=== PATIENT | male | born 1995 ===

== ENCOUNTER 2024-03-12 11:50 | Outpatient (CLI) | payer OTHER, SELFPAY | END 2024-03-12 11:51 | disposition home or self-care (01) | PROVIDERS: Visit Provider Obstetrics & Gynecology | DX: R79.89 Other specified abnormal findings of blood chemistry (principal); Z31.69 Encounter for other general counseling and advice on procreation; Z13.71 Encounter for nonprocreative screening for genetic disease carrier status | CPT/HCPCS: 84146; 86703; 86762; 86787; 86803 ==

== ENCOUNTER 2024-10-09 15:34 | Outpatient (CLI) | payer OTHER, SELFPAY ==
--- NOTE | 2024-10-09 15:45 | CRLHL7_ITS ---
For Patients: As a result of the Century Cures Act, medical imaging exams and procedure reports are released immediately into your electronic medical record. You may view this report before your referring provider. If you have questions, please contact your health care provider. OBSTETRICAL ULTRASOUND TRANSVAGINAL, 10/09/2024 CLINICAL INDICATION: Dating and viability. LMP: 08/03/2024 KIM by LMP: 05/10/2025 Gestational age: 9 weeks 4 days Previous ultrasound: No TECHNIQUE: Real-time weiss-scale imaging of the fetus was performed transvaginal. Transvaginal imaging was performed for better visualization of the endometrium and ovaries. FINDINGS: CRL: 2.3 cm, 9 weeks 0 days; KIM 05/14/2025 heart rate: 186 BPM Gestational sac: 3.0 cm, appears within normal limits Yolk sac: 3.5 mm, appears within normal limits Right ovary: 2.9 x 1.7 x 2.2 cm, CL Left ovary: 2.7 x 1.3 x 1.7 cm IMPRESSION: 1. Single living intrauterine measuring 9 weeks 0 days with sonographic due date of 05/14/2025. 2. heart rate 186 beats per minute, upper limits of normal. CAMERON SMILEY M.D. Diagnostic Radiologist [email or web address] Transcribed: 10:[address]/Dictated by: Cameron Smiley MD @ 10/10/2024 6:52:00 AM (Electronically Signed)
== END 2024-10-09 15:35 | disposition home or self-care (01) ==
LOC: US 15:35
PROVIDERS: Visit Provider Advanced Practice Midwife
DX: Z34.91 Encounter for supervision of normal pregnancy, unspecified, first trimester (principal); Z3A.09 9 weeks gestation of pregnancy
CPT/HCPCS: 76817; 83021; 86703; 86706; 86803; 86850; 86900; 86901; 87086; 87340; 87491; 87591

== ENCOUNTER 2024-10-09 16:41 | Outpatient (CLI) | payer OTHER, SELFPAY ==
[2024-10-09 21:19] LABS: Chlamydia DNA Amplified* NOT DETECTED (No Detected); GC DNA Amplified* NOT DETECTED (No Detected)
== END 2024-10-09 16:42 | disposition home or self-care (01) ==
PROVIDERS: Visit Provider Advanced Practice Midwife
DX: Z34.01 Encounter for supervision of normal first pregnancy, first trimester (principal)
CPT/HCPCS: 80306; 83020; 83021; 85660; 86592; 86703; 86704; 86706; 86762; 86787; 86803; 86850; 86900; 86901; 87086; 87340; 87491; 87591

== ENCOUNTER 2024-11-25 09:21 | Emergency (ER) | payer OTHER, SELFPAY ==
--- OUTSIDE RECORDS SUMMARY | 2024-11-25 09:24 | XMS_ITS | Clinical Summary ---
Author Organization [email or web address] Address [address] [place] [id number] Care Team Providers Care Edger Automatic Name Role Phone Pcp, No Primary Care Provider Unavailabl e Allergies No known active allergies Medications lamoTRIgine (LAMICTAL) 100 mg tablet Take 1 tablet by mouth once daily. 0 03/01/2013 Active gabapentin (NEURONTIN) 600 mg tablet Take 1 tablet by mouth 2 times daily. 0 03/01/2013 Active buPROPion (BUPROBAN) 150 mg Sustained-Releas e tablet Take 1 tablet by mouth every morning. 0 03/01/2013 Active norethindrone-et h estradiol, 1-35 mg-mcg, (DASETTA , ,) 1-35 mg-mcg tablet Take 1 tablet by mouth once daily. 1 Package 0 03/01/2013 Active sertraline (ZOLOFT) 50 mg tablet Take 1 tablet by mouth once daily. 30 tablet 1 03/01/2013 Active Active Problems Problem Noted Date Diagnosed Date Encounter for procreative genetic counseling Overview (03/15/2024): SRO GC - Completed [x] Patient name: Amber Bejarano : 1995 Age: 29 y.o. Date of SRO: 03/15/2024 Estimated Date of Delivery: None Gest Age: NA G/P: Current BMI: REFERRING PROVIDER/CLINIC LOCATION/FAX #: Cintia Kearney MD Primary MD approves scheduling of recommended ultrasounds/testing: Not specified Reason for referral: Preconception carrier screening Please schedule the following: [] Sapp [] Multiples: [] Consult [] Ultrasound: - N/A [] Lab: [x] Genetic Counseling [] Before [] After []15 [] 30 [x]45 []NT [][facility] []Amnio [] BMI > 40 [] Data Typist - Language [] [place] Insurance: Location Specialty Days Virtual Visit [] In-person [] Virtual [x] Either N/A Comments: RN: Resident Services Coordinator: GC: Adelita Chung MS, KATERIN MD/Provider: Date:03/15/2024 Urgency: 2-8 weeks [x]Can be sooner [] Can be split Major depression, recurrent Generalized anxiety disorder Low back pain Immunizations Immunization Administration Dates Next Due DTaP 07/10/1999, 7,1995,1995, Hepatitis B (Peds) 1995,1995, 995 Hib Conjugate, Unspecified 06/15/1996,1995 ,1995,1995 Human Papilloma Virus Vaccine 03/14/2012, 012,08/31/2011 Inactivated Polio Vaccine 07/10/1999,1995, 1995,1995 MMR 07/10/1999,06/15/1996 Td (Age >=7 Years) 11/06/2008 Tdap 11/06/2008 Varicella Vaccine 11/06/2008,07/10/1999 Social History Tobacco Use Types Packs/Day Years Used Date Smoking Tobacco: Never Smokeless Tobacco: Never Alcohol Use Standard Drinks/Week Comments Yes 0 (1 standard drink = 0.6 oz pur e alcohol) Comments No Sex and Gender Information Value Date Recorded Sex Assigned at Not on file Legal Sex Female 6:29 PM CDT Gender Identity Not on file Sexual Orientation Not on file Obstetrics History Last Filed Vital Signs Vital Sign Reading Time Taken Comments Blood Pressure 125/85 01/03/2014 6:23 AM CDT Pulse 90 01/03/2014 6:23 AM CDT Temperature 36.7 C (98.1 F) 01/03/2014 6:23 AM CDT Respiratory Rate 16 01/03/2014 6:23 AM CDT Oxygen Saturation 99% 01/03/2014 6:23 AM CDT Inhaled Oxygen Concentration - - Weight 66.7 kg (147 lb) 01/03/2014 6:23 AM CDT Height 167.6 cm (5' 5.98) 01/03/2014 6:23 AM CD T Body Mass Index 23.74 01/03/2014 6:23 AM CDT Plan of Treatment Health Maintenance Due Date Last Done Comments Depression screening for age 12+ 2007 HIV for age 15-65 2010 BMI (ht and wt on same day) for age 18+ 2013 Hepatitis C screening for ag e 18-79 2013 Pap test for age 21-65 01/20/2016 Tetanus booster 11/06/2018 11/06/2008, 11/06/2008 COVID-19 vaccine series (2023- season) 2024 Influenza Vaccine (#1) 2024 Hepatitis B series for 19+ Completed 08/08, 1995, 1995 Pneumococcal series for age 6-49 Aged Out No longer eligible b ased on patient's age to complete this topic Care Teams Edger Automatic Relationship Specialty Start Date End Date Pcp, No . PCP - General 02/23/13
--- OUTSIDE RECORDS SUMMARY | 2024-11-25 09:24 | XMS_ITS | Encounter Summary ---
Author Organization [facility] Address [address] [place] [address]. [place] [address] Care Team Providers Care Welt Sole Layer Name Role Phone Santa Whelan PA-C Primary Care Provider [facility] Primary Care Provider Santa Wiley CNP Primary Care Provider Santa Whelan-C Unavailable Santa Whelan PA-C Unavailable [phone] Santa Whelan PA-C Unavailable Aranza Gates APRN REGIONAL GUIDE Unavailable Santa Wiley REGIONAL GUIDE Unavailable [phone] Aranza Gates APRN REGIONAL GUIDE Unavailable Terrie Cox-C Unavailable [phone] Reason for Visit * Reason Comments Medication Refill ISIBLOOM 0.15-30 MG- MCG per tablet Encounter Details Date Type Department Care Team (Late st Contact Info) Description 01/12/[address] [address] Santa Whelan PA-C [address] [facility] [place] [address] Medication Refill (ISIBLOOM 0.15-30 MG-MCG per tablet) Social History Tobacco Use Types Packs/Day Years Used Date Smoking Tobacco: Never Smokeless Tobacco: Never Alcohol Use Standard Drinks/Week Comments Yes 0 (1 standard drink = 0.6 oz pur e alcohol) Comments No Sex and Gender Information Value Date Recorded Sex Assigned at Not on file Legal Sex Female 12:35 PM CDT Gender Identity Not on file Sexual Orientation Not on file Occupation Industry Job Start Date Job End Date Not on file Not on file Not on file Not on file documented as of this encounter Miscellaneous Notes * Telephone Encounter - Marie Preciado - 01/13/2018 3:21 PM CDT Informed pt of refill she stated she doesn't know when she will be able to schedule future appt. PRIYA Hickey * Telephone Encounter - Santa Whelan PA-C - 01/13/2018 7:24 AM CDT 1 more fill. Must have appointment. Santa Whelan PA-C * Telephone Encounter - Dasha Israel RN - 01/12/2018 3:24 PM CDT Routing refill request to provider for review/approval because: Federica given x1 and patient did not follow up, please advise Last Refill 12/14/17: December 29, 2017 Pennie Gordon ?? 2:09 PM Note Informed patient below and she stated she was out of town and would call back prior to her next refill to schedule appointment. PRIYA Burks * Telephone Encounter - Christelle Urias - 01/12/2018 7:56 AM CDT Requested Prescriptions Pending Prescriptions Disp Refills ??? ISIBLOOM 0.15-30 MG-MCG per tablet [Pharmacy Med Name: ISIBLOOM 0.15MG- 0.03MG TABLETS 28S] 28 tablet 0 Last Written Prescription Date: 12-16-17 Last Fill Quantity: 28, # refills: 0 Last office visit: 08/02/2017 with prescribing provider: 08-02-17 Future Office Visit: Sig: TAKE 1 TABLET BY MOUTH EVERY DAY Contraceptives Protocol Passed 01/12/2018 4:02 AM Passed - Patient is not a current smoker if age is 35 or older Passed - Recent (12 mo) or future (30 days) visit within the authorizing provider's specialty Patient had office visit in the last 12 months or has a visit in the next 30 days with authorizing provider or within the authorizing provider's specialty. See Patient Info tab in inbasket, or Choose Columns in Meds & Orders section of the refill encounter. 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 Assessment Noted Time PHQ-9 Depression Total Score: 11 018 7:40 AM CDT documented as of this encounter Care Teams Welt Sole Layer Relationship Specialty Start Date End Date Santa Whelan PA-C PCP - General Physician Filling Mixer - Medical 08/02/17 06/15/[address] [address] PCP - General 06/16/23 05/24/24 Santa Wiley, REGIONAL GUIDE [address] [place], [place] [address] PCP - General Nurse Practitioner - Family 05/25/24 Santa Whelan PA-C [address] [place] [address] PCP - Assigned PCP 12/19/16 07/04/18 Santa Whelan PA-C Physician Filling Mixer - Medical 06/16/23 09/17/24 Santa Whelan PA-C [address] [place] [address] Assigned PCP 12/19/16 08/02/20 Aranza Gates APRN REGIONAL GUIDE [address] [place], [place] [id number] Assigned Neuroscience Provider 06/24/24 Santa Wiley, REGIONAL GUIDE [address] [place] [address] [id number] Assigned PCP 07/23/23 Aranza Gates APRN REGIONAL GUIDE [address] [place] [address] Assigned Neuroscience Provider 07/15/23 06/23/24 Terrie Cox PA-C [address] [place] [address] Assigned Surgical Provider 08/22/24 documented as of this encounter
--- OUTSIDE RECORDS SUMMARY | 2024-11-25 09:24 | XMS_ITS | Encounter Summary ---
Author Organization [facility] Address [address] [place] [address]. [place] [address] Care Team Providers Care Fleet Service Manager Name Role Phone Santa Wiley CNP Primary Care Provider [phone] Santa Whelan PA-C Unavailable Aranza Gates APRN CMA Unavailable Santa Wiley CNP Unavailable [phone] Terrie CoxC Unavailable Encounter Details Date Type Department Care Team (Late st Contact Info) Description 07/19/2024 [facility] [address] [place] [address] [facility] Social History Tobacco Use Types Packs/Day Years Used Date Smoking Tobacco: Never Smokeless Tobacco: Never Alcohol Use Standard Drinks/Week Comments Yes 3 (1 standard drink = 0.6 oz pur e alcohol) Social Connection and Isolation Panel [NHANES] A nswer Date Recorded Frequency of Communication with Friends and Fami ly Not on file 01/26/2024 How often do you get togethe r with friends or relatives? Patient declined 01/26/2024 Attends Cheondoism Services Not on file 01/25 Active Member of Clubs or Organizations Not on f ile 01/26/2024 Attends Club or Organization Meetings Not on louis e 01/26/2024 Marital Status Not on file 01/26/2024 PHQ-2 Answer Date Recorded PHQ-2 Score 1 07/19/2024 [facility] Occupational Stress Questionnaire Answer Date Recorded Do you feel stress - tense, restless, nervous, or anxious, or unable to sleep at night because your mind is troubled all the time - these days? To some extent 01/26/2024 Exercise Vital Sign Answer Date Recorde d On average, how many days pe r week do you engage in moderate to strenuous exercise (like a brisk walk)? 5 days 01/26/2024 On average, how many minutes do you engage in exercise at this level? 150+ min 01/26/2024 Adolescent Education Answer Date Record ed Getting School Help Needed Not on file 07/09 Food Insecurity Answer Date Recorded Within the past 12 months, d id you worry that your food would run out before you got money to buy more? No 01/26/2024 Within the past 12 months, d id the food you bought just not last and you didn t have money to get more? No 01/26/2024 Housing Stability Answer Date Recorded Do you have housing? (Diana g is defined as stable permanent housing and does not include staying outside in a car, in a tent, in an abandoned building, in an overnight fpc, or couch-surfing.) Yes 01/26/2024 Are you worried about losing your housing? No 01/26/2024 Financial Resource Strain Answer Date R ecorded Within the past 12 months, h ave you or your family members you live with been unable to get utilities (heat, electricity) when it was really needed? No 01/26/2024 Transportation Needs Answer Date Record ed Within the past 12 months, h as lack of transportation kept you from medical appointments, getting your medicines, non-medical meetings or appointments, work, or from getting things that you need? No 01/26/2024 Interpersonal Safety Answer Date Record ed Do you feel physically and e motionally safe where you currently live? Yes 01/27/2024 Within the past 12 months, h ave you been hit, slapped, kicked or otherwise physically hurt by someone? No 01/27/2024 Within the past 12 months, h ave you been humiliated or emotionally abused in other ways by your partner or ex-partner? No 01/27/2024 Comments No Sex and Gender Information Value Date Recorded Sex Assigned at Not on file Legal Sex Female 12:35 PM CDT Gender Identity Not on file Sexual Orientation Not on file Occupation Industry Job Start Date Job End Date Not on file Not on file Not on file Not on file documented as of this encounter Plan of Treatment Not on file documented as of this encounter Visit Diagnoses Not on filedocumented in this encounter Additional Health Concerns Assessment Noted Time PHQ-9 Depression Total Score: 1 03/19/20 24 3:24 PM EXCEPTIONAL STUDENT EDUCATION TEACHER documented as of this encounter Care Teams Fleet Service Manager Relationship Specialty Start Date End Date Santa Wiley CNP [address] [place] [id number] PCP - General Nurse Practitioner - Family 05/25/24 Santa Whelan PA-C [address] [place] [address] [id number] Physician Physician General Internal Medicine - Medical 06/16/23 09/17/24 Aranza Gates APRN CNP [address] [place] [address] [id number] Assigned Neuroscience Provider 06/24/24 Santa Wiley CNP [address] [place] [address] [id number] Assigned PCP 07/23/23 Terrie Cox PA-C [address] [place] [address] [id number] Assigned Surgical Provider 08/22/24 documented as of this encounter
--- OUTSIDE RECORDS SUMMARY | 2024-11-25 09:24 | XMS_ITS | Encounter Summary ---
Author Organization [facility] Address [address] [place] [address]. [place] [address] Care Team Providers Care Acquisitions Analyst Name Role Phone Clinic - [facility] Primary Care Provider Santa Wiley ACTUARIAL CONSULTANT Primary Care Provider [phone] Santa Whelan PA-C Unavailable [phone] Aranza Gates APRN ACTUARIAL CONSULTANT Unavailable Santa Wiley ACTUARIAL CONSULTANT Unavailable Aranza Gates APRN ACTUARIAL CONSULTANT Unavailable Terrie Cox PA-C Unavailable [phone] Reason for Visit * Reason Onset Date Comments MyChart Communication 07/29/2023 Encounter Details Date Type Department Care Team (Late st Contact Info) Description 07/29/2023 My[facility] Medical Advice [address] [address] Santa Wiley CNP [address] [place] [address] MyChart Communication Social History Tobacco Use Types Packs/Day Years Used Date Smoking Tobacco: Never Smokeless Tobacco: Never Alcohol Use Standard Drinks/Week Comments Yes 3 (1 standard drink = 0.6 oz pur e alcohol) PHQ-2 Answer Date Recorded PHQ-2 Score 0 05/10/2018 Adolescent Education Answer Date Record ed Getting School Help Needed Not on file 07/09 Comments No Sex and Gender Information Value Date Recorded Sex Assigned at Not on file Legal Sex Female 12:35 PM CDT Gender Identity Not on file Sexual Orientation Not on file documented as of this encounter Miscellaneous Notes * Telephone Encounter - Radha Ordaz RN - 08/01/2023 7:29 AM CDT Please see my chart message below Please review and advise Thank you Radha Ordaz RN, BSN [place] Triage documented in this encounter Plan of Treatment Not on file documented as of this encounter Visit Diagnoses Not on filedocumented in this encounter Additional Health Concerns Infection Onset Date Last Indicated Resolved Time Rule Out C-difficile 05/26/2024 05/28/2024 025 5:58 PM 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 Assessment Noted Time PHQ-9 Depression Total Score: 10 024 6:00 PM CDT documented as of this encounter Care Teams Acquisitions Analyst Relationship Specialty Start Date End Date Clinic - [address] [address] PCP - General 06/16/23 05/24/24 Santa Wiley CNP [address] [place] [address] [id number] PCP - General Nurse Practitioner - Family 05/25/24 Santa Whelan, PAShereeC [address] [place] [address] Physician Stenciling Machine Tender - Medical 06/16/23 09/17/24 Aranza Gates APRN ACTUARIAL CONSULTANT [address] [place] [address] Assigned Neuroscience Provider 06/24/24 Santa Wiley, LEEANNA [address] [place] [address] [id number] Assigned PCP 07/23/23 Aranza Gates APRN ACTUARIAL CONSULTANT [address] [place] [address] Assigned Neuroscience Provider 07/15/23 06/23/24 Terrie Cox PA-C [address] [place], [place] [address] Assigned Surgical Provider 08/22/24 documented as of this encounter
--- OUTSIDE RECORDS SUMMARY | 2024-11-25 09:24 | XMS_ITS ---
Author Organization [facility] Source Produ ction (ClinicalSummary Clone) Address Unknown Care Team Providers Care Spray Gun Repairer Name Role Phone Unavailable Primary Care Physician Unavailab le Results * [UNITY] CARRIER SCREEN Performed by: [employer] Component Value Range Date Sickle Cell Disease/Beta-Thalassemia/Hemo globinopathies carrier screen NEGATIVE 10/27/2024 07:56 am [facility] Alpha-Thalassemia carrier screen NEGATIVE 10/27/2024 07:56 am [place] Cystic Fibrosis carrier screen NEGATIVE 10/27/2024 07:56 am [facility] Spinal Muscular Atrophy carrier screen NEGATIVE 2 SMN1 copies, SNP not present 10/27/2024 07:56 am [place] For detailed report, see PDF See PDF 10/27/2024 07:56 am [place] 10/27/2024 07:5 6 am [facility] Social History Observation Value Start Date End Date
--- OUTSIDE RECORDS SUMMARY | 2024-11-25 09:24 | XMS_ITS | Clinical Summary ---
Author Organization [facility] Address [address] [place] [id number] Care Team Providers Care Telecommunications Field Technician Name Role Phone Santa Wiley PAYROLL AND BENEFITS ASSISTANT Primary Care Provider [phone] Aranza Gates APRN PAYROLL AND BENEFITS ASSISTANT Unavailable Santa Wiley [facility] Unavailable [phone] Terrie Cox PA-C Unavailable [phone] Allergies No known active allergies Medications desogestrel-ethin yl estradiol (ISIBLOOM) 0.15-30 MG-MCG per tabletIndications :Encounter for initial prescription of contraceptive pills Take 1 tablet by mouth daily Must have appointment for further refills. 28 tablet 8 Active medical cannabis (Patient's own supply) See Admin Instructions. (The purpose of this order is to document that the patient reports taking medical cannabis. This is not a prescription, and is not used to certify that the patient has a qualifying medical condition.) Active calcium citrate-vitamin D (CITRACAL) 315-5 MG-MCG TABS per tablet Take 1 tablet by mouth 2 times daily Active propranolol (INDERAL) 10 MG tabletIndications :SHARON (generalized anxiety disorder) Take 1 tablet (10 mg) by mouth 3 times daily as needed (anxiety) 90 tablet 4 Active diazepam (VALIUM) 2 MG tabletIndications :SHARON (generalized anxiety disorder) Take 1 tablet (2 mg) by mouth every 6 hours as needed for anxiety 30 tablet 4 Active lidocaine-priloca ine (EMLA) 2.5-2.5 % external creamIndications: SHARON (generalized anxiety disorder) Apply topically daily as needed for moderate pain 30 g 4 Active triamcinolone (KENALOG) 0.025 % external ointmentIndicatio ns:Dermatitis Apply topically 2 times daily. 80 g 1 4 Active venlafaxine (EFFEXOR XR) 37.5 MG 24 hr capsuleIndication s:SHARON (generalized anxiety disorder) Take 1 capsule (37.5 mg) by mouth daily. Then discontinue. 14 capsule 4 Active Active Problems Problem Noted Date Diagnosed Date Hair loss 07/04/2014 CARDIOVASCULAR SCREENING; LDL GOAL LESS THAN 160 01/04/2014 Chronic back pain 01/04/2014 Immunizations Immunization Administration Dates Next Due DTAP (<7y) 07/10/1999, 7,1995,1995, 5 HIB (PRP-T) 06/15/1996,1995,1995 ,1995 HPV 03/14/2012,11/09/2011,08/31/2011 HepB 1995,1995,1995 MMR (MMRII) 07/10/1999,06/15/1996 OPV, trivalent, live 07/10/1999,1995,06/10,1995 TDAP (Adacel,Boostrix) 11/06/2008 Varicella (Varivax) 11/06/2008,07/10/1999 Family History Medical History Relation Comments Alcohol/Drug Brother Anxiety Disorder Father Alzheimer Disease Maternal Grandfather Alzheimer Disease Maternal Grandmother Diabetes Maternal Grandmother Hypertension Maternal Grandmother Thyroid Disease Mother Alzheimer Disease Paternal Grandfather Anxiety Disorder Paternal Grandfather Cancer Paternal Grandmother ? Relation Status Comments Brother Father Alive Maternal Grandfather Maternal Grandmother Alive Mother Alive Paternal Grandfather Paternal Grandmother Social History Tobacco Use Types Packs/Day Years [...] friends or relatives? Patient declined 01/26/2024 Attends Alevism Services Not on file 01/25 Active Member of Clubs or Organizations Not on f ile 01/26/2024 Attends Club or Organization Meetings Not on louis e 01/26/2024 Marital Status Not on file 01/26/2024 PHQ-2 Answer Date Recorded PHQ-2 Score 1 07/19/2024 [facility] - Occupational Stress Questionnaire Answer Date [...] Answer Date Recorded Do you have housing? (Housin g is defined as stable permanent housing and does not include staying outside in a car, in a tent, in an abandoned building, in an overnight care home, or couch-surfing.) Yes 01/26/2024 Are you worried [...] file Not on file Not on file Last Filed Vital Signs Vital Sign Reading Time Taken Comments Blood Pressure 127/81 07/19/2024 11:49 AM CDT Pulse 58 07/19/2024 11:49 AM CDT Temperature 37.6 C (99.7 F) 01/27/2024 1:22 PM CDT Respiratory Rate 16 01/27/2024 1:22 PM CDT Oxygen Saturation 98% 07/19/2024 11:49 AM CDT Inhaled Oxygen Concentration - - Weight 81.3 kg (179 lb 4.8 oz) 07/19/2024 11:49 AM CDT Height 165.1 cm (5' 5) 07/19/2024 11:49 AM CDT Body Mass Index 29.84 07/19/2024 11:49 AM CDT Plan of Treatment Health Maintenance Due Date Last Done Comments DTAP/TDAP/TD VACCINE (7 - Td or Tdap) 11/06/2018 11/06/2008, 11/06/2008, 07/10/1999, Additional history exists COVID-19 VACCINE ( season) 2024 ANNUAL REVIEW OF HM ORDERS 12/07/2024 12/08/2023 HEPATITIS C SCREENING 12/25/2024 Postpo farida from 2013 (Other) HIV SCREENING 12/25/2024 Postponed from 2010 (Other) INFLUENZA VACCINE (#1) 2024 YEARLY PREVENTIVE VISIT 01/26/2025 01/27/2024, 01/04 PAP 01/26/2027 01/27/2024 ADVANCE CARE PLANNING 01/26/2029 01/27/2024 ZOSTER VACCINE (1 of 2) 2045 HEPATITIS B VACCINE Completed 1995, 1995, 1995, Additional history exists HPV VACCINE Completed 03/14/2012, 10/30, 08/31/2011 CHLAMYDIA SCREENING Discontinued 01/04/2014 PHQ-2 (once per calendar year) Completed 07/19/2024, 03/19/2024, 03/19/2024, Additional history exists MENINGITIS VACCINE Aged Out No longer eligible based on patient's age to complete this topic PNEUMOCOCCAL VACCINE: PEDIATRICS (0 to 5 YEARS) AND AT-RISK PATIENTS (6 to 49 YEARS) Aged Out No longer eligible based on patient's age to complete this topic Procedures Procedure Name Priority Date/Time Associated Diagnosis Comments GYNECOLOGIC CYTOLOGY Routine 01/27/2024 1:47 PM CDT Cervical cancer screening CHLAMYDIA TRACHOMATIS PCR Routine 01/04/2014 1:00 PM CDT Routine Or Child Health Check from Last 3 Months or Most Recently Relevant to Health Maintenance Results * Pap Screen Reflex to HPV if ASCUS - Recommended Age 25 - 29 Years (01/27/2024 1:47 PM CDT) Interpretation Negative for Intraepithelial Lesion or Malignancy (NILM) 02/01/2024 8:37 AM CDT [facility] at 0837 CDT Comment Papanicolaou Test Limitations: Cervical cytology is a screening test with limited sensitivity, and regular screening is critical for cancer prevention. Pap tests are primarily effective for the diagnosis/prevent ion of squamous cell carcinoma, not adenocarcinoma or other cancers. 02/01/2024 8:37 AM CDT [facility] Specimen Adequacy Satisfactory for evaluation, endocervical/ferraro sformation zone component present 02/01/2024 8:37 AM CDT [facility] Clinical Information none 02/01/2024 8:37 AM CDT [facility] Reflex Testing Yes if ASCUS 02/01/20 8:37 AM CDT [facility] Previous Abnormal? No 02/01/2024 8:37 AM CDT [facility] Performing Labs The technical component of this testing was completed at [facility]. Stain controls for all stains resulted within this report have been reviewed and show appropriate reactivity. 02/01/2024 8:37 AM CDT [facility] Brushing ENDOCERVICAL STRUCTURE / Unknown 01/27/2024 1:47 PM CDT 01/27/2024 2:35 PM CDT us Santa SHARMA - ZOILA AP Final Res ult Performing Organization Address City/[facility]/ZIP Co de Phone Number [facility] Specialty Lab [address] [facility], Room [address] * CHLAMYDIA TRACHOMATIS PCR (01/04/2014 1:00 PM CDT) Specimen Description Urine [facility] Chlamydia Trachomatis PCR Negative Negative for C. trachomatis rRNA by parimutuel cashier mediated amplification. A negative result by parimutuel cashier mediated amplification does not preclude the presence of C. trachomatis infection because results are dependent on proper and adequate collection, absence of inhibitors, and sufficient rRNA to be detected. NEG [facility] Urine specimen (specimen) 01/04/2014 1:00 PM CDT 01/04/2014 1:28 PM CDT us Emilia Carlisle MD LAB - MICRO GENERAL ORDERABLES F inal Result Performing Organization Address [facility]/ZIP Co de Phone Number [facility] [address] [place] [address] from Last 3 Months or Most Recently Relevant to Health Maintenance Insurance [facility] [employer] [facility] [employer] [facility] Innovate/Protect Care Teams Telecommunications Field Technician Relationship Specialty Start Date End Date Santa Wiley CNP [address] [place] [address] [phone] PCP - General Nurse Practitioner - Family 05/25/24 Aranza Gates APRN PAYROLL AND BENEFITS ASSISTANT [address] [place] [address] [phone] Assigned Neuroscience Provider 06/24/24 Santa Wiley CNP [address] [place] [address] [phone] Assigned PCP 07/23/23 Terrie Cox PA-C [address] [place] [address] [phone] Assigned Surgical Provider 08/22/24
--- OUTSIDE RECORDS SUMMARY | 2024-11-25 09:24 | XMS_ITS | Encounter Summary ---
Author Organization [facility] Address [address] [place] [address]. [place] [address] Care Team Providers Care Industrial Designer Name Role Phone Clinic - [facility] Primary Care Provider Santa Wiley [facility] Primary Care Provider Santa Whelan-C Unavailable [phone] Aranza Gates APRN AIR INTELLIGENCE OFFICER Unavailable Santa Wiley AIR INTELLIGENCE OFFICER Unavailable [phone] Aranza Gates APRN AIR INTELLIGENCE OFFICER Unavailable Terrie Cox-C Unavailable [phone] Encounter Details Date Type Department Care Team (Late st Contact Info) Description 07/12/2023 [facility] [place] [facility] [address] [place] [phone] Ana Hewitt RN Social History Tobacco Use Types Packs/Day Years [...] Out C-difficile 05/26/2024 05/28/2024 025 5:58 PM CYTOLOGIST Assessment Noted Time PHQ-9 Depression Total Score: 15 024 4:53 PM CYTOLOGIST documented as of this encounter Care Teams Industrial Designer Relationship Specialty Start Date End Date [facility] - [address] [phone] PCP - General 06/16/23 05/24/24 Santa Wiley CNP [address] [place] [address] [phone] PCP - General Nurse Practitioner - Family 05/25/24 Santa Whelan PA-C [address] [place] [address] [phone] Physician Keel Press Operator - Medical 06/16/23 09/17/24 Aranza Gates APRN AIR INTELLIGENCE OFFICER [address] [place] [address] Assigned Neuroscience Provider 06/24/24 Santa Wiley CNP [address] [place] [address] [phone] Assigned PCP 07/23/23 Aranza Gates APRN AIR INTELLIGENCE OFFICER [address] [place], [place] 279355 Assigned Neuroscience Provider 07/15/23 06/23/24 Terrie Cox PA-C [address] [place] [address] Assigned Surgical Provider 08/22/24 documented as of this encounter
--- OUTSIDE RECORDS SUMMARY | 2024-11-25 09:24 | XMS_ITS | Encounter Summary ---
Author Organization [facility] Address [address] [place] [address]. [place] [address] Care Team Providers Care Board Setter Name Role Phone Santa Wiley CNP Primary Care Provider [phone] Santa Whelan PA-C Unavailable Aranza Gates APRN PSYCH SALES SPECIALIST Unavailable Santa Wiley CNP Unavailable Terrie Cox PA-C Unavailable [phone] Encounter Details Date Type Department Care Team (Late st Contact Info) Description 08/06/2024 [facility] Medical Advice [facility] [address] [phone] Terrie Cox PA-C [address] [place] [phone] Social History Tobacco Use Types Packs/Day Years [...] friends or relatives? Patient declined 01/26/2024 Attends Quaker Services Not on file 01/25 Active Member of Clubs or Organizations Not on f ile 01/26/2024 Attends Club or Organization Meetings Not on louis e 01/26/2024 Marital Status Not on file 01/26/2024 PHQ-2 Answer Date Recorded PHQ-2 Score 1 07/19/2024 [facility] - Occupational Stress Questionnaire Answer Date Recorded [...] in an abandoned building, in an overnight assisted, or couch-surfing.) Yes 01/26/2024 Are you worried [...] Total Score: 1 03/19/20 24 3:24 PM CARPET OR RUG LAYER HELPER documented as of this encounter Care Teams Board Setter Relationship Specialty Start Date End Date Santa Wiley CNP [address] [place] [address] [phone] PCP - General Nurse Practitioner - Family 05/25/24 Santa Whelan PA-C [address] [place] [address] [phone] Physician Compliance Program Manager - Medical 06/16/23 09/17/24 Aranza Gates APRN PSYCH SALES SPECIALIST [address] [place] [address] [phone] Assigned Neuroscience Provider 06/24/24 Santa Wiley CNP [address] [place] [address] [phone] Assigned PCP 07/23/23 Terrie Cox PA-C [address] [place] [address] [phone] Assigned Surgical Provider 08/22/24 documented as of this encounter
--- OUTSIDE RECORDS SUMMARY | 2024-11-25 09:24 | XMS_ITS ---
Author Organization [facility] Source [facility] ction (ClinicalSummary Clone) Address Unknown Care Team Providers Care Spinner Hydraulic Name Role Phone Unavailable Primary Care Physician Unavailab le Results * [UNITY] ANEUPLOIDY NIPT Performed by: [employer] Value Range Date Fraction 2.0% 10/27/2024 06 :39 am UT 22q11.2 Microdeletion LOW RISK <1 in 10,000 10/27/2024 06:39 am UT Sex Chromosome Aneuploidy NOT DETECTED 06:39 am UT Monosomy X LOW RISK <1 in 10,000 2024 06:39 am UTC Trisomy 13 LOW RISK <1 in 10,000 2024 06:39 am UTC Trisomy 18 LOW RISK <1 in 10,000 2024 06:39 am UTC Trisomy 21 LOW RISK <1 in 10,000 2024 06:39 am UT Sex FEMALE 10/27/2024 06:3 9 am UTC Gestation DEMPSEY 10/28/19 06:39 am UT For detailed report, see PDF See PDF 10/27/2024 06:39 am UTC 10/27/2024 06:3 9 am UT Social History Observation Value Start Date End Date
[2024-11-25 09:47] VITALS: BP 121/79; PULSE 85; RESP 18; TEMP 36.6; O2SAT 98; BMI 29.0
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
--- NOTE | 2024-11-25 10:39 | CRLHL7_ITS ---
For Patients: As a result of the Century Cures Act, medical imaging exams and procedure reports are released immediately into your electronic medical record. You may view this report before your referring provider. If you have questions, please contact your health care provider. INDICATION: Vaginal spotting in . COMPARISON: 09 October 2024. FINDINGS: heart rate by M-mode 159 beats per minute. Grayscale imaging transabdominally demonstrates normal-appearing posterior placenta. Anechoic physiologic volume of amniotic fluid. Single deepest pocket 3 cm. Vertex presentation of single intrauterine . Cervix long and closed at 3.9 cm without funneling. activity observed per cardiology physician assistant report. IMPRESSION: No source for vaginal spotting appreciated. Dictated by Hebert Angeles MD @ 11/25/2024 12:48:15 PM (Electronically Signed)
== END 2024-11-25 11:42 | disposition home or self-care (01) ==
PROVIDERS: Emergency Provider Family Medicine
DX: O20.9 Hemorrhage in early pregnancy, unspecified (principal); Z3A.16 16 weeks gestation of pregnancy
CPT/HCPCS: 76815; 99283; 99284

== ENCOUNTER 2024-11-27 16:00 | Outpatient (CLI) | payer OTHER, SELFPAY | END 2024-11-27 16:01 | disposition home or self-care (01) | LOC: NFLDREF 16:03 | PROVIDERS: Visit Provider Midwife | DX: Z34.92 Encounter for supervision of normal pregnancy, unspecified, second trimester (principal); Z3A.16 16 weeks gestation of pregnancy | CPT/HCPCS: 81511 ==

== ENCOUNTER 2024-12-27 11:03 | Outpatient (CLI) | payer OTHER, SELFPAY ==
--- NOTE | 2024-12-27 11:15 | CRLHL7_ITS ---
For Patients: As a result of the 21st Century Cures Act, medical imaging exams and procedure reports are released immediately into your electronic medical record. You may view this report before your referring provider. If you have questions, please contact your health care provider. LMP: 08/03/2024. KIM by LMP: 05/10/2025. GA: 20w, 6d. Single. INDICATION: anatomy survey. CERVIX: Visualized. Measurement: 3.7 cm. POSITIONING: Vertex. AMNIOTIC FLUID: 4.9 cm SDP. PLACENTA: Technique: Transabdominal. PLACENTA POSITION: Posterior TA. Placental tip to internal os: 8.7 cm. Umbilical cord: 3-vessel. Placental insertion: Central. Biometry: BPD: 4.8 cm. 20w, 3d, 32.3 percent. HC: 18.1 cm. 20w, 4d, 25.6 percent. AC: 14.6 cm. 20w, 0d, 16.6 percent. FL: 3.3 cm. 20w, 3d, 25.6 percent. FL/AC ratio: 22.68 percent. HC/AC ratio: 1.24. EFW: 337.96 g. Weight: 0 lbs, 12 oz. age by this US: 20w, 3d. KIM by this US: 05/13/2025. Percentile by KIM: 15.3 percent. SURVEY: Observed Structures Cerebellum: Yes. 2.0 cm; 20w 5d. Cisterna Magna: Yes. 3.7 mm. Nuchal Fold: Yes. 3.9 mm. Lateral Ventricle: Yes. 5.4 mm. CSP: Yes. Midline Falx: Yes. Choroid Plexus: Yes. Spine: Yes. Stomach: Yes. Abd Cord Insertion: Yes. Urinary Bladder: Yes. Kidneys: Yes. Diaphragm: Yes. Nose/lips: Yes. Orbital view: Yes. Profile: Yes. Upper Extremities: Yes. Lower Extremities: Yes. Hands: Yes. Feet: Yes. Four-Chamber Heart: Yes. LVOT: Yes. RVOT: Yes. 3VV: Yes. 3VTV: Yes. IMPRESSION: 1. Concordance of clinical and sonographic dating. 2. Estimated weight 15th percentile. Abdominal circumference 17th percent. 3. Possible abnormal left foot. Remainder of the anatomic survey is normal. Short-term follow-up in two weeks versus maternal medicine consult recommended. Cameron Morin M.D. Diagnostic Radiologist [email or web address] MARK/rashmi / bM/Dictated by: Cameron Morin MD @ 12/27/2024 2:37:00 PM (Electronically Signed)
== END 2024-12-27 11:04 | disposition home or self-care (01) ==
LOC: US 11:04
PROVIDERS: Visit Provider Midwife
DX: Z34.92 Encounter for supervision of normal pregnancy, unspecified, second trimester (principal); Z3A.20 20 weeks gestation of pregnancy
CPT/HCPCS: 76805

== ENCOUNTER 2025-02-25 08:06 | Outpatient (CLI) | payer OTHER, SELFPAY | END 2025-02-25 08:07 | disposition home or self-care (01) | LOC: NFLDREF 03-01 02:58 | PROVIDERS: Visit Provider Advanced Practice Midwife | DX: Z34.92 Encounter for supervision of normal pregnancy, unspecified, second trimester (principal) | CPT/HCPCS: 86592 ==

== ENCOUNTER 2025-02-26 19:14 | Outpatient (CLI) | payer OTHER, SELFPAY ==
[2025-02-26 19:25] VITALS: PULSE 105; O2SAT 97
[2025-02-26 19:28] VITALS: BP 131/84; PULSE 96
[2025-02-26 19:30] VITALS: BP 131/84; PULSE 96; RESP 16; O2SAT 97
[2025-02-26 19:35] VITALS: PULSE 103; O2SAT 96
--- NOTE | 2025-02-26 19:55 | PC.OBNST ---
NST Note NST Note Start: 02/26/25 19:44 Freq: ONCE Status: Active Protocol: Document 02/26/25 19:53 [facility] (Rec: 02/26/25 19:54 [facility] No Response) NST Note 1 Para (# of births) 0 EDC 05/14/25 Gestational Age In 29 Weeks & 0 Days Weeks & Days Patient Presented Decreased movement with Complaint(s) of Reactive Yes Appropriate for Yes Gestational Age TARIK Lloyd RNC Date 02/26/25 Reactive Yes Appropriate for Yes Gestational Age TARIK Hidalgo RN Date 02/26/25 OB NST charge Yes Complete NST Note Yes via Write Note The provider's electronic signature indicates the NST is reactive/appropriate for gestational age. *Note to provider: If an addendum is required, open the patient's chart and click on the note under the Nurse/Allied Health tab.
== END 2025-02-26 20:05 | disposition home or self-care (01) ==
LOC: OB OUT 19:14 → OB 19:20
PROVIDERS: Visit Provider Advanced Practice Midwife
DX: O36.8130 Decreased fetal movements, third trimester, not applicable or unspecified (principal); Z3A.29 29 weeks gestation of pregnancy
CPT/HCPCS: 59025; G0463

== ENCOUNTER 2025-04-02 16:27 | Outpatient (CLI) | payer OTHER, SELFPAY ==
--- OUTSIDE RECORDS SUMMARY | 2025-03-05 23:59 | XMS_ITS | Clinical Summary ---
Author Organization [facility] Address [address] [place] [address] Care Team Providers Care Geology Instructor Name Role Phone Santa Jones Primary Care Physician [phone] Encounter Date(s): 03/05/25 - 03/05/25 [facility] [address] [place], [place] [address] Encounter Diagnosis consult(Discharge Diagnosis) - 03/05/25 Discharge Disposition: Home or Self Care Attending Physician: Shanita Mccall PA-C Admitting Physician: Shanita Mccall PA-C Referring Physician: Candice Delatorre MD Encounter Type: Outpatient Allergies, Adverse Reactions, Alerts No Known Allergies Discharge Medications cholecalciferol (Vitamin D3 25 mcg (1000 intl units) oral tablet) Status: Ordered Start Date: 03/05/25 1 tabs Oral every day. magnesium gluconate Status: Ordered Start Date: 03/05/25 Oral 2 times a day. multivitamin with minerals ( Super B Complex with Folic Acid) Status: Ordered Start Date: 03/05/25 Oral every day. multivitamin, (Pren atal Complete with DHA) Status: Ordered Start Date: 03/05/25 Problem List Hospital Discharge Diagnosis consult(Discharge Diagnosis) - 03/05/25 (This Visit) Vital Signs Most recent to oldest [Reference Range]: 1 Pain Present No actual or suspect ed pain (03/05/25 3:05 PM) Able to self report Yes (03/05/25 3:05 PM) able to use numeric rating scale Yes (03/05/25 3:05 PM) Social History Social History Type Response Smoking Status Never (less than 100 in lifetime) entered on: 03/05/25 Sex Sex Representation Female (finding) Patient Care team information Personnel Name: Santa Jones DO Address: [address] Telecom:
--- OUTSIDE RECORDS SUMMARY | 2025-04-02 16:30 | XMS_ITS | Clinical Summary ---
Author Organization [facility] Address [address] [place] [address] Care Team Providers Care Ladle Puller Name Role Phone Pcp, No Primary Care [...] [][facility] []Amnio [] BMI > 40 [] Flight Instructor - Language [] [place] Insurance: Location [facility] Virtual Visit [] In-person [] Virtual [x] Either N/A Comments: RN: Tick Sewer: GC: Adelita Chung MS, KATERIN MD/Provider: Date:03/15/2024 [...] booster 11/06/2018 11/06/2008, 11/06/2008 COVID-19 vaccine series (2024- season) 2024 Influenza Vaccine (#1) 2024 RSV vaccine for adults or (1 - 1-dose 75+ series) 2070 Hepatitis B series for 19+ Completed 08/08, 1995, 1995 HPV series for age 9-45 Completed 03/14/20 12, 11/09/2011, 08/31/2011 Pneumococcal series for age 6-49 Aged Out No longer eligible b ased on patient's age to complete this topic Care Teams Ladle Puller Relationship Specialty Start Date End Date Pcp, No . PCP - General 02/23/13
--- OUTSIDE RECORDS SUMMARY | 2025-04-02 16:30 | XMS_ITS | Encounter Summary ---
Author Organization [facility] Address [address] [place] [address]. [place] [address] Care Team Providers Care Customer Service Trainer Name Role Phone Santa Wiley CNP Primary Care Provider [phone] Santa Whelan PA-C Unavailable Aranza Gates APRN FIBER PICKER Unavailable Santa Wiley CNP Unavailable [phone] Terrie Cox PA-C Unavailable [phone] Encounter Details Date Type Department Care Team (Late st Contact Info) Description 07/19/2024 [facility] [address] [place] [address] [facility] Social History Tobacco Use Types Packs/Day Years Used Date Smoking Tobacco: Never Smokeless Tobacco: Never Alcohol Use Standard Drinks/Week Comments Yes 3 (1 standard drink = 0.6 oz pur e alcohol) Social Connection and Isolation Panel Answer Date Recorded Frequency of Communication with Friends and Fami ly Not on file 01/26/2024 How often do you get togethe r with friends or relatives? Patient declined 01/26/2024 Attends Orthodoxy Services Not on file 01/25 Active Member of Clubs or Organizations Not on f ile 01/26/2024 Attends Club or Organization Meetings Not on louis e 01/26/2024 Marital Status Not on file 01/26/2024 PHQ-2 Answer Date Recorded PHQ-2 Score 1 07/19/2024 [facility] - Occupational Stress Questionnaire Answer [...] Answer Date Recorded Do you have housing? (Erikain g is defined as stable permanent housing and does not include staying outside in a car, in a tent, in an abandoned building, in an overnight [place] [facility], or couch-surfing.) Yes 01/26/2024 Are you worried [...] as of this encounter Plan of Treatment Upcoming Encounters Date Type Department Care Team (Late st Contact Info) Description 01/31/2026 7:00 AM CDT Office Visit [address] [phone] Santa Wiley CNP [address] [place] [address] [id number] documented as of this encounter Visit Diagnoses Not on filedocumented in this encounter Additional Health Concerns Assessment Noted Time PHQ-9 Depression Total Score: 1 03/19/20 24 3:24 PM DISPATCHER CLERK documented as of this encounter Care Teams Customer Service Trainer Relationship Specialty Start Date End Date Santa Wiley CNP [address] [place] [address] [id number] PCP - General Nurse Practitioner - Family 05/25/24 Santa Whelan, PAShereeC [address] [place] [address] Physician Operations Executive - Medical 06/16/23 09/17/24 Aranza Gates APRN FIBER PICKER [address] [place] [address] [id number] Assigned Neuroscience Provider 06/24/24 02/20/25 Santa Wiley CNP [address] [place] [address] [id number] Assigned PCP 07/23/23 Terrie Cox PA-C [address] [place] [address] Assigned Surgical Provider 08/22/24 documented as of this encounter
--- OUTSIDE RECORDS SUMMARY | 2025-04-02 16:30 | XMS_ITS | Encounter Summary ---
Author Organization [facility] Address [address] [place] [address]. [place] [address] Care Team Providers Care Kitchen Clerk Name Role Phone Santa Wiley CNP Primary Care Provider [phone] Santa Whelan PA-C Unavailable [phone] Aranza Gates APRN PATTERN CARRIER Unavailable Santa Wiley CNP Unavailable [phone] Terrie Cox PA-C Unavailable Encounter Details Date Type Department Care Team (Late st Contact Info) Description 08/06/2024 [facility] [address] [phone] Terrie Cox PA-C [address] [place] [address] Social History Tobacco Use Types Packs/Day [...] friends or relatives? Patient declined 01/26/2024 Attends Confucianism Services Not on file 01/25 Active Member of Clubs or Organizations Not on f ile 01/26/2024 Attends Club or Organization Meetings Not on louis e 01/26/2024 Marital Status Not on file 01/26/2024 PHQ-2 Answer Date Recorded PHQ-2 Score 1 07/19/2024 [facility] - Occupational Stress Questionnaire Answer Date [...] in an abandoned building, in an overnight prison, or couch-surfing.) Yes 01/26/2024 Are you worried [...] Description 01/31/2026 7:00 AM CDT Office Visit [address] [phone] Santa Wiley CNP [address] [place] [address] [phone] documented as of this encounter Visit Diagnoses Not on filedocumented in this encounter Additional Health Concerns Assessment Noted Time PHQ-9 Depression Total Score: 1 03/19/20 24 3:24 PM MANAGER OF TRAINING AND DEVELOPMENT documented as of this encounter Care Teams Kitchen Clerk Relationship Specialty Start Date End Date Santa Wiley CNP [address] [place] [address] [phone] PCP - General Nurse Practitioner - Family 05/25/24 Santa Whelan PA-C [address] [place] [address] [phone] Physician Technician Test Systems - Medical 06/16/23 09/17/24 Aranza Gates APRN CNP [address] [place] [id number] Assigned Neuroscience Provider 06/24/24 02/20/25 Santa Wiley, LEEANNA [address] [place], [place] [phone] Assigned PCP 07/23/23 Terrie Cox PA-C [address] [place], [place] [phone] Assigned Surgical Provider 08/22/24 documented as of this encounter
--- OUTSIDE RECORDS SUMMARY | 2025-04-02 16:30 | XMS_ITS | Clinical Summary ---
Author Organization [facility] Address [address] [place] [address]. [place] [address] Care Team Providers Care Senior Medical Technologist Name Role Phone Santa Wiley CNP Primary Care Provider [phone] Santa Wiley CNP Unavailable [phone] Terrie Cox PA-C Unavailable [phone] Allergies No known active allergies Medications Vit-Fe Fumarate-FA (PNV PLUS MULTIVITAMIN) 27-1 MG TABS per tablet Take 1 tablet by mouth daily. Active Active Problems Problem Noted Date Diagnosed Date Hair loss 07/04/2014 CARDIOVASCULAR SCREENING; LDL GOAL LESS THAN 160 01/04/2014 Chronic back pain 01/04/2014 Estimated Date of Delivery Comme nts Yes 05/14/2025 Based on Ultraso und Encounters Date Type Department Care Team Description 02/08/2025 10:30 AM CDT Office Visit [facility] [address] [phone] Damari Delatorre MD Club foot of fetus affecting antepartum care of mother, single or unspecified fetus (Primary Dx) 02/08/2025 10:00 AM CDT Ancillary Procedure [facility] [address] [place] [phone] Damari Delatorre MD Suspected anomaly, antepartum, single or unspecified fetus 02/08/2025 Travel 02/05/2025 Travel 02/03/2025 Travel 02/01/2025 Results Follow-Up [address] [phone] Santa Wiley CNP Subj: Message about your results 01/28/2025 2:30 PM CDT Office Visit [address] [phone] Santa Wiley CNP Routine general medical examination at a health care facility (Primary Dx); Screening cholesterol level; Screening for diabetes mellitus; Screening for deficiency anemia; Thyroid disorder screening; Screening for diabetes mellitus (DM); Screening for cardiovascular condition; Hair loss 01/28/2025 Travel 01/25/2025 Travel 01/17/2025 1:44 PM CDT - 01/17/2025 11:59 PM CDT Hospital Encounter [facility] [address] [phone] Tricia Moreno MD Suspected anomaly, antepartum, single or unspecified fetus Discharge Disposition: Home or Self Care 01/17/2025 Travel 01/12/2025 Travel 01/01/2025 MyC Medical Advice [facility] [address] [phone] Santa Villar LPN 01/01/[address] [phone] Santa Villar LPN from Last 3 Months Immunizations Immunization Administration Dates Next Due DTAP [...] alcohol) PHQ-2 Answer Date Recorded PHQ-2 Score 1 07/19/2024 [facility] - Occupational Stress Questionnaire Answer Date Recorded Do you feel stress - tense, restless, nervous, or anxious, or unable to sleep at night because your mind is troubled all the time - these days? To some extent 01/25/2025 Exercise Vital Sign Answer Date Recorde d On average, how many days pe r week do you engage in moderate to strenuous exercise (like a brisk walk)? 5 days 01/25/2025 On average, how many minutes do you engage in exercise at this level? 90 min 01/25/2025 Adolescent Education Answer Date Record ed Getting School Help Needed Not on file 07/09 Social Connections Answer Date Recorded How often do you feel lonely or isolated from th ose around you? Rarely 01/25/2025 Food Insecurity Answer Date Recorded Within the past 12 months, d id you worry that your food would run out before you got money to buy more? No 01/25/2025 Within the past 12 months, d id the food you bought just not last and you didn t have money to get more? No 01/25/2025 Housing Stability Answer Date Recorded Do you have housing? (Diana morales is defined as stable permanent housing and does not include staying outside in a car, in a tent, in an abandoned building, in an overnight fpc, or couch-surfing.) Yes 01/25/2025 Are you worried about losing your housing? No 01/25/2025 Financial Resource Strain Answer Date R ecorded Within the past 12 months, h ave you or your family members you live with been unable to get utilities (heat, electricity) when it was really needed? No 01/25/2025 Transportation Needs Answer Date Record ed Within the past 12 months, h as lack of transportation kept you from medical appointments, getting your medicines, non-medical meetings or appointments, work, or from getting things that you need? No 01/25/2025 Interpersonal Safety Answer Date Record ed Do you feel physically and e motionally safe where you currently live? Yes 01/28/2025 Within the past 12 months, h ave you been hit, slapped, kicked or otherwise physically hurt by someone? No 01/28/2025 Within the past 12 months, h ave you been humiliated or emotionally abused in other ways by your partner or ex-partner? No 01/28/2025 Estimated Date of Delivery Comme nts Yes 05/14/2025 Based on Ultraso und Sex and Gender Information Value Date Recorded Sex Assigned at Not on file Legal Sex Female 12:35 PM CDT Gender Identity Not on file Sexual Orientation Not on file Occupation Industry Job Start Date Job End Date Not on file Not on file Not on file Not on file Last Filed Vital Signs Vital Sign Reading Time Taken Comments Blood Pressure 120/78 01/28/2025 2:17 PM CDT Pulse 93 01/28/2025 2:17 PM CDT Temperature 36.6 C (97.8 F) 01/28/2025 2:17 PM CDT Respiratory Rate 16 01/28/2025 2:17 PM CDT Oxygen Saturation 99% 01/28/2025 2:17 PM CDT Inhaled Oxygen Concentration - - Weight 87.5 kg (193 lb) 01/28/2025 2:17 PM CDT Height 165.1 cm (5' 5) 01/28/2025 2:17 PM CDT Body Mass Index 32.12 01/28/2025 2:17 PM CDT Plan of Treatment Upcoming Encounters Date Type Department Care Team ([facility] st Contact Info) Description 01/31/2026 7:00 AM CDT Office Visit [facility] [address] [place] [phone] Santa Wiley, UTILIZATION COORDINATOR [address] [place] [address] Health Maintenance Due Date Last Done Comments DTAP/TDAP/TD VACCINE (7 - Td or Tdap) 11/06/2018 11/06/2008, 11/06/2008, 07/10/1999, Additional history exists MATERNAL SCREENING DISCUSSION 10/16/2024 COVID-19 VACCINE ( season) 2024 INFLUENZA VACCINE (#1) 2024 OBGCT (OB) 01/22/2025 TDAP VACCINE () 02/12/2025 11/06/2008 SHARON ASSESSMENT 03/19/2025 03/19/2024, 08/0 12/2023, 07/28/2023, Additional history exists PHQ-9 03/19/2025 03/19/2024, 08/0 12/2023, 07/28/2023, Additional history exists RSV VACCINE (1 - Risk 1-dose series) 03/19/2025 ANNUAL REVIEW OF HM ORDERS 01/28/2026 01/28/2025, YEARLY PREVENTIVE VISIT 01/28/2026 01/29/20 25, 01/27/2024, 01/04/2014 PAP 01/26/2027 01/27/2024 ADVANCE CARE PLANNING 01/28/2030 01/28/2025, 024 ZOSTER VACCINE (1 of 2) 2045 HEPATITIS B VACCINE Completed 1995, 1995, 1995, Additional history exists HPV VACCINE Completed 03/14/2012, 10/30, 08/31/2011 CHLAMYDIA SCREENING Discontinued 10/09/2024, 4 HEPATITIS C SCREENING Completed 10/09/2024, 024 HIV SCREENING Completed 10/09/2024, 03/12/2024 MENINGITIS VACCINE Aged Out No longer eligible based on patient's age to complete this topic PNEUMOCOCCAL VACCINE: PEDIATRICS (0 to 5 YEARS) AND AT-RISK PATIENTS (6 to 49 YEARS) Aged Out No longer eligible based on patient's age to complete this topic Procedures Procedure Name Priority Date/Time Associated Diagnosis Comments [facility] COMPREHENSIVE SINGLE F/U Routine 02/08/2025 10:34 AM CDT Suspected anomaly, antepartum, single or unspecified fetus IRON AND IRON BINDING CAPACITY Routine 01/28/2025 3:11 PM CDT Screening for deficiency anemia FERRITIN Routine 01/28/2025 3:11 PM CDT Screening for deficiency anemia LIPID REFLEX TO DIRECT LDL PANEL Routine 01/28/2025 3:11 PM CDT Screening for cardiovascular condition TSH WITH FREE T4 REFLEX Routine 01/28/2025 3:11 PM CDT Thyroid disorder screening CBC WITH PLATELETS Routine 01/28/2025 3: 11 PM CDT Screening for deficiency anemia COMPREHENSIVE METABOLIC PANEL Routine 01/28/2025 3:11 PM CDT Screening for diabetes mellitus (DM) ECHO COMPLETE Routine 01/17/2025 2 :47 PM CDT Suspected anomaly, antepartum, single or unspecified fetus GYNECOLOGIC CYTOLOGY Routine 01/27/2024 1:47 PM CDT Cervical cancer screening CHLAMYDIA TRACHOMATIS PCR Routine 01/04/2014 1:00 PM CDT Routine Or Child Health Check from Last 3 Months or Most Recently Relevant to Health Maintenance Results * [facility] Comprehensive Single F/U (02/08/2025 10:34 AM CDT) Anatomical Region Laterality Modality Ultrasound 02/08/2025 9:50 AM CDT Impressions 02/08/2025 10:57 AM CDT IMPRESSION ----- 1. Funez at 26w 3d gestational age. 2. None of the anomalies commonly detected by ultrasound were evident in the limited anatomic survey as described above. 3. Growth parameters and estimated weight were appropriate for gestational age. Adequate interval growth. 4. The amniotic fluid volume appeared normal. 5. Isolated left club foot again noted Narrative 02/08/2025 10:57 AM CDT Comp Follow Up ----- Pat. Name: AMBER TIDWELL Study Date: 02/08/2025 9:50am Pat. NO: [id number] Referring MD: JOAQUIM GARCIA Site: Permanent Waver: Obdulia Diaz RDMS : 1995 Age: 30 ----- INDICATION ----- Left club foot. METHOD ----- Transabdominal ultrasound examination. View: Sufficient ----- Funez . Number of fetuses: 1 DATING ----- Date Details Gest. age KIM LMP 08/03/2024 27 w + 0 d 05/10/2025 Previous U/S 10/09/2024 GA, GA 9 w + 0 d 26 w + 3 d 05/14/2025 U/S 02/08/2025 based upon AC, BPD, Femur, HC 26 w + 0 d 05/17/2025 Assigned dating based on ultrasound (GA), selected on 12/28/2024 26 w + 3 d 05/14/2025 GENERAL EVALUATION ----- Cardiac activity present. FHR 151 bpm. movements: present. Presentation: breech Placenta: Posterior, No Previa, > 2 cm from internal os Umbilical cord: Cord vessels: 3 vessel cord. Insertion site: normal insertion Amniotic fluid: normal MVP, MVP 5.4 cm BIOMETRY ----- BPD 62.5 mm 25w 2d Hadlock OFD 88.9 mm 26w 3d Nicolaides HC 244.0 mm 26w 3d Hadlock Cerebellum tr 31.1 mm 27w 1d Nicolaides AC 216.4 mm 26w 1d 32% Hadlock Femur 47.3 mm 25w 6d Hadlock Weight Calculation: EFW 878 g 23% Hadlock EFW (lb,oz) 1 lb 15 oz EFW by Hadlock ([id number]) Head / Face / Neck Biometry: Steam Roller Operator 2.6 mm CM 5.7 mm ANATOMY ----- The following structures appear abnormal: Extremities / Skeleton Left foot: Left club foot. The following structures appear normal: Head / Neck Cranium. Head size. Head shape. Lateral ventricles. Midline falx. Cavum septi pellucidi. Cerebellum. Cisterna magna. Thalami. Face Lips. Profile. Nose. Heart / Thorax Diaphragm. Abdomen Stomach. Bladder. Spine Cervical spine. The following structures were documented previously: Heart / Thorax 4-chamber view. RVOT view. LVOT view. 7-drshol-scwhtyp view. Abdomen Kidneys. Spine Thoracic spine. Lumbar spine. Sacral spine. sex: female. MATERNAL STRUCTURES ----- Cervix Suboptimal Right Ovary Not examined Left Ovary Not examined RECOMMENDATION ----- I discussed the findings on today's ultrasound with the patient and her partner. We placed a referral to [facility] for [facility] consult. Further ultrasound studies as clinically indicated in our office. Return to primary provider for continued care. If you have questions regarding today's evaluation or if we can be of further service, please contact the [facility]. anomalies may be present but not detected I spent a total of 10 minutes (excluding the ultrasound interpretation) on the date of this encounter including preparing to see the patient (reviewing medical records/tests), in direct tkuy-zs-tuvt contact with the patient during the visit counseling and discussing the plan of care and documenting the visit in the electronic medical record. Procedure Note Damari Delatorre MD - 02/08/2025 Comp Follow Up ----- Pat. Name: AMBER TIDWELL Study Date: 02/08/2025 9:50am Pat. NO: [id number] Referring MD: JOAQUIM GARCIA Site: Permanent Waver: Obdulia Diaz RDMS : 1995 Age: 30 ----- INDICATION ----- Left club foot. METHOD ----- Transabdominal ultrasound examination. View: Sufficient ----- Funez . Number of fetuses: 1 DATING ----- DateDetailsGest. age KIM LMP w + 0 d 05/10/2025 Previous U/S 10/09/2024 GA, GA9 w + 0 d26 w + 3 d 05/14/2025 U/S 02/08/2025ased upon AC, BPD, Femur, HC26 w + 0 d 05/17/2025 Assigned dating based on ultrasound (GA), selected on12/28/2024 26w + 3 d 05/14/2025 GENERAL EVALUATION ----- Cardiac activity present. FHR 151 bpm. movements: present.Presentation: breech Placenta: Posterior, No Previa, > 2 cm from internal os Umbilical cord: Cord vessels: 3 vessel cord. Insertion site: normalinsertion Amniotic fluid: normal MVP, MVP 5.4 cm BIOMETRY ----- BPD 62.5mm 25w 2dHadlock OFD 88.9mm 26w 3dNicolaides HC 244.0mm 26w 3dHadlock Cerebellum tr 31.1mm 27w 1dNicolaides AC 216.4mm 26w 1d 32%Hadlock Femur 47.3mm 25w 6dHadlock Weight Calculation: EFW 878g 23%Hadlock EFW (lb,oz) 1 lb 15oz EFW by Hadlock([id number]) Head / Face / Neck Biometry: Steam Roller Operator 2.6mm CM 5.7mm ANATOMY ----- The following structures appear abnormal: Extremities / Skeleton Left foot: Left club foot. The following structures appear normal: Head / Neck Cranium. Head size. Head shape.Lateral ventricles. Midline falx. Cavum septi pellucidi. Cerebellum.Cisterna magna. Thalami. Face Lips. Profile. Nose. Heart / Thorax Diaphragm. Abdomen Stomach. Bladder. Spine Cervical spine. The following structures were documented previously: Heart / Thorax 4-chamber view. RVOT view. LVOT view.0-ysypex-trcdpcu view. Abdomen Kidneys. Spine Thoracic spine. Lumbar spine.Sacral spine. sex: female. MATERNAL STRUCTURES ----- Cervix Suboptimal Right Ovary Not examined Left Ovary Not examined RECOMMENDATION ----- I discussed the findings on today's ultrasound with the patient and herpartner. We placed a referral to [facility]. Further ultrasound studies as clinically indicated in our office. Return to primary provider for continued care. If you have questions regarding today's evaluation or if we can be offurther service, please contact the [facility]. anomalies may be present but not detected I spent a total of 10 minutes (excluding the ultrasound interpretation) onthe date of this encounter including preparing to see the patient(reviewing medical records/tests), in direct akzi-wb-vjpk contact with the patient during the visitcounseling and discussing the plan of care and documenting the visit inthe electronic medical record. IMPRESSION ----- 1. Funez at 26w 3d gestational age. 2. None of the anomalies commonly detected by ultrasound were evident inthe limited anatomic survey as described above. 3. Growth parameters and estimated weight were appropriate forgestational age. Adequate interval growth. 4. The amniotic fluid volume appeared normal. 5. Isolated left club foot again noted us Tricia Moreno MD [facility] US ORDERABLES Edited Result - Final * TSH with free T4 reflex (01/28/2025 3:11 PM CDT) TSH 2.38 0.30 - 4.20 uIU/mL 01/29/2025 4:24 AM CDT [facility] Blood BLOOD SPECIMEN / Unknown Venipuncture / Unknown 01/28/2025 3:11 PM CDT 01/28/2025 3:11 PM CDT us Santa Wiley UTILIZATION COORDINATOR LAB - BLOOD ORDERABLES Fi nal Result [facility] [address] [facility], Room [address] [place] [phone] * (ABNORMAL) Lipid panel reflex to direct LDL Fasting (01/28/2025 3:11 PM CDT) Cholesterol 235(H) <200 mg/dL 01/29/2025 4:24 AM CDT [facility] Triglycerides 300(H) <150 mg/dL 01/29/2025 4:24 AM CDT [facility] Direct Measure HDL 62 >=50 mg/dL 01/29/2025 4:24 AM CDT [facility] LDL Cholesterol Calculated 113(H) <100 mg/dL 01/29/2025 4:24 AM CDT [facility] Comment:LDL calculated using the Friedewald equation. Non HDL Cholesterol 173(H) <130 mg/dL 01/29/2025 4:24 AM CDT [facility] Patient Fasting > 8hrs? Unknown 01/29/2025 4:24 AM CDT [facility] Blood BLOOD SPECIMEN / Unknown Venipuncture / Unknown 01/28/2025 3:11 PM CDT 01/28/2025 3:11 PM CDT Narrative [facility] - 01/29/2025 4:24 AM CDT Cholesterol Desirable: < 200 mg/dL Borderline High: 200 - 239 mg/dL High: >= 240 mg/dL Triglycerides Normal: < 150 mg/dL Borderline High: 150 - 199 mg/dL High: 200-499 mg/dL Very High: >= 500 mg/dL Direct Measure HDL Female: >= 50 mg/dL Male: >= 40 mg/dL LDL Cholesterol Desirable: < 100 mg/dL Above Desirable: 100 - 129 mg/dL Borderline High: 130 - 159 mg/dL High: 160 - 189 mg/dL Very High: >= 190 mg/dL Non HDL Cholesterol Desirable: < 130 mg/dL Above Desirable: 130 - 159 mg/dL Borderline High: 160 - 189 mg/dL High: 190 - 219 mg/dL Very High: >= 220 mg/dL Santa Wiley UTILIZATION COORDINATOR LAB - BLOOD ORDERABLES Fi nal Result [facility] [address] [facility], [address] [phone] * (ABNORMAL) Iron and iron binding capacity (01/28/2025 3:11 PM CDT) Iron 43 37 - 145 ug/dL 01/29/2025 4:24 AM CDT [facility] Iron Binding Capacity 435(H) 240 - 430 ug/dL 01/29/2025 4:24 AM CDT [facility] Iron Sat Index 10(L) 15 - 46 % 01/29/2025 4:24 AM CDT [facility] Blood BLOOD SPECIMEN / Unknown Venipuncture / Unknown 01/28/2025 3:11 PM CDT 01/28/2025 3:11 PM CDT Santa Mackenzieabebe DURÁN LAB - BLOOD ORDERABLES Fi nal Result [facility] [address] [facility], Room [address] * Ferritin (01/28/2025 3:11 PM CDT) Ferritin 72 6 - 175 ng/mL 01/29/2025 4:24 AM CDT [facility] Blood BLOOD SPECIMEN / Unknown Venipuncture / Unknown 01/28/2025 3:11 PM CDT 01/28/2025 3:11 PM CDT Santa Kayla Mackenzieabebe [facility] LAB - BLOOD ORDERABLES Fi nal Result Performing Organization Address City/[facility]/ZIP Co de Phone Number [facility] [address] [facility], [address] * (ABNORMAL) Comprehensive metabolic panel (01/28/2025 3:11 PM CDT) Sodium 133(L) 135 - 145 mmol/L 01/29/2025 4:24 AM CDT [facility] Potassium 4.2 3.4 - 5.3 mmol/L 01/29/2025 4:24 AM CDT [facility] Carbon Dioxide (CO2) 21(L) 22 - 29 mmol/L 01/29/2025 4:24 AM CDT [facility] Anion Gap 12 7 - 15 mmol/L 01/29/2025 4:24 AM CDT [facility] Urea Nitrogen 12.2 6.0 - 20.0 mg/dL 01/29/2025 4:24 AM CDT [facility] Creatinine 0.57 0.51 - 0.95 mg/dL 01/29/2025 4:24 AM CDT [facility] GFR Estimate >90 >60 mL/min/1.7 3m2 01/29/2025 4:24 AM CDT [facility] Comment:eGFR calculated us2020 CKD-EPI equation. Calcium 9.1 8.8 - 10.4 mg/dL 01/29/2025 4:24 AM CDT [facility] Chloride 100 98 - 107 mmol/L 01/29/2025 4:24 AM CDT [facility] Glucose 100(H) 70 - 99 mg/dL 01/29/2025 4:24 AM CDT [facility] Alkaline Phosphatase 63 40 - 150 U/L 01/29/2025 4:24 AM CDT [facility] AST 25 0 - 45 U/L 01/29/2025 4:24 AM CDT [facility] ALT 28 0 - 50 U/L 01/29/2025 4:24 AM CDT [facility] Protein Total 6.9 6.4 - 8.3 g/dL 01/29/2025 4:24 AM CDT [facility] Albumin 3.9 3.5 - 5.2 g/dL 01/29/2025 4:24 AM CDT [facility] Bilirubin Total <0.2 <=1.2 mg/dL 01/29/2025 4:24 AM CDT [facility] Patient Fasting > 8hrs? Unknown 01/29/2025 4:24 AM CDT [facility] Blood BLOOD SPECIMEN / Unknown Venipuncture / Unknown 01/28/2025 3:11 PM CDT 01/28/2025 3:11 PM CDT Santa Wiley UTILIZATION COORDINATOR LAB - BLOOD ORDERABLES Fi nal Result [facility] [address] [facility], Room [address] [place] [phone] * (ABNORMAL) CBC with platelets (01/28/2025 3:11 PM CDT) WBC Count 12.35(H) 4.00 - 11.00 10e3/uL 01/28/2025 3:14 PM CDT [facility] RBC Count 4.28 3.80 - 5.20 10e6/uL 01/28/2025 3:14 PM CDT [facility] Hemoglobin 12.7 11.7 - 15.7 g/dL 01/28/2025 3:14 PM CDT [facility] Hematocrit 36.7 35.0 - 47.0 % 01/28/2025 3:14 PM CDT [facility] MCV 85.7 78.0 - 100.0 fL 01/28/2025 3:14 PM CDT [facility] MCH 29.7 26.5 - 33.0 pg 01/28/2025 3:14 PM CDT [facility] MCHC 34.6 31.5 - 36.5 g/dL 01/28/2025 3:14 PM CDT [facility] RDW 11.5 10.0 - 15.0 % 01/28/2025 3:14 PM CDT [facility] Platelet Count 285 150 - 450 10e3/uL 01/28/2025 3:14 PM CDT [facility] Blood BLOOD SPECIMEN / Unknown Venipuncture / Unknown 01/28/2025 3:11 PM CDT 01/28/2025 3:11 PM CDT Santa Wiley UTILIZATION COORDINATOR LAB - BLOOD ORDERABLES Fi nal Result Performing Organization Address City/State/[facility] Co de Phone Number [facility] [place] [facility] [address] [place] [address] [facility], 1st floor of clinic) [place] [phone], [facility] * ECHO COMPLETE (01/17/2025 2:47 PM CDT) Anatomical Region Laterality Modality Echocardiography 01/17/2025 2:15 PM CDT Narrative 01/21/2025 8:09 AM CDT [id number]^TIFFANIE^TRICIA^Mario Study ID: [id number] [facility] [place] [address] Echocardiogram Name: AMBER TIDWELL Study Date: 01/17/2025 02:15 PM Patient Location: [facility] Gender: Female Patient Class: Outpatient : 1995 Age: 29 yrs Ordering Provider: TRICIA MORENO Referring Provider: TRICIA MORENO Performed By: Randa Lara Physician: Ervin Nelson MD Reason For Study: Suspected anomaly, antepartum, single or unspecified fetus Data: Number of fetuses: This is a funez gestation. Due date: 05/14/2025. Gestational age: 23w2d. Delivery at: [place]. Specific Indication: echocardiogram performed for fetus with talipes. CONCLUSIONS Normal cardiac anatomy. Normal intracardiac connections. Normal right and left ventricular size and function. No effusion. The results of the echocardiogram were explained to the patient. She is aware that the study was within normal limits with no major cardiac abnormalities. She is aware of the general limitations of echocardiography. Technical Information: The study quality is good. A complete two dimensional, spectral and color Doppler echocardiogram is performed. position and segmental anatomy: The fetus in vertex position. The heart is in left chest. The cardiac apex points towards the left. There is normal atrial arrangement, with concordant atrioventricular and ventriculoarterial connections. The abdominal aorta is to the left of the spine. There is a left sided stomach. Systemic and pulmonary veins: The systemic venous return is normal. At least one right and one left pulmonary veins are seen returning to the left atrium. Atria and atrial septum: Normal right atrial size. The left atrium is normal in size. The flap of the foramen ovale opens in to the left atrium. There is laminar dchng-wq-jynh shunting across the foramen ovale. Atrioventricular valves: The tricuspid valve is normal in appearance and motion. There is no tricuspid insufficiency. The mitral valve is normal in appearance and motion. There is no mitral valve insufficiency. Ventricles and ventricular septum: Normal right ventricular size. Normal right ventricular systolic function. Normal left ventricular size. Normal left ventricular systolic function. No obvious ventricular level shunting. Outflows tracts: Normal great artery relationship. The right ventricular outflow tract is normal in caliber. The pulmonary valve has normal appearance and motion. There is normal flow across the pulmonary valve. There is unobstructed flow through the left ventricular outflow tract. The aortic valve has normal appearance and motion. There is normal flow across the aortic valve. Great arteries: The main pulmonary artery has normal appearance. There is unobstructed flow in the main pulmonary artery. The pulmonary artery bifurcation is normal. There is unobstructed flow in both branch pulmonary arteries. The ductus arteriosus has normal appearance with normal antegrade flow. There is unobstructed antegrade flow in the ascending aorta. The aortic arch appears normal. There is unobstructed antegrade flow in the aortic arch. Effusions and extracardiac findings: No pericardial effusion. No hydrops. cardiac rhythm: heart rate is regular at 158 bpm. Doppler: There is normal flow in the ductus venosus, umbilical artery and umbilical vein. echocardiography cannot rule out small atrial or ventricular septal defects, persistent ductus arteriosus, mild coarctation of the aorta, partial anomalous pulmonary venous return, minor anatomic valve anomalies or coronary artery anomalies. Reading Physician: Ervin Nelson MD 01/21/2025 08:09 AM Procedure Note Ervin Nelson MD - 01/21/2025 [id number]^K Study ID:[id number] [address] [place] [address] Echocardiogram Name: AMBER TIDWELL Study Date: 01/17/2025 02:15 PM Patient Location:[facility] Gender: Female Patient Class:Outpatient : [id number] Age: 29 yrs Ordering Provider: TRICIA MORENO Referring Provider: TRICIA MORENO Performed By: Randa Lara Physician: Ervin Nelson MD Reason For Study: Suspected anomaly, antepartum, single orunspecified fetus Data: Number of fetuses: This is a funez gestation. Duedate: 05/14/2025. Gestational age: 23w2d. Delivery at: [place]. Specific Indication: echocardiogram performed for fetus with talipes. CONCLUSIONS Normal cardiac anatomy. Normal intracardiac connections.Normal right and left ventricular size and function. No effusion. The results of the echocardiogram were explained to the patient. Sheis aware that the study was within normal limits with no major cardiac abnormalities. She is aware of the general limitations of echocardiography. Technical Information: The study quality is good. A complete two dimensional, spectral andcolor Doppler echocardiogram is performed. position and segmental anatomy: The fetus in vertex position. The heart is in left chest. The cardiacapex points towards the left. There is normal atrial arrangement, withconcordant atrioventricular and ventriculoarterial connections. The abdominal aortais to the left of the spine. There is a left sided stomach. Systemic and pulmonary veins: The systemic venous return is normal. At least one right and one left pulmonary veins are seen returning to the left atrium. Atria and atrial septum: Normal right atrial size. The left atrium is normal in size. The flap ofthe foramen ovale opens in to the left atrium. There is qcwinbmffrti-ge-nphb shunting across the foramen ovale. Atrioventricular valves: The tricuspid valve is normal in appearance and motion. There is notricuspid insufficiency. The mitral valve is normal in appearance and motion. Thereis no mitral valve insufficiency. Ventricles and ventricular septum: Normal right ventricular size. Normal right ventricular systolicfunction. Normal left ventricular size. Normal left ventricular systolic function.No obvious ventricular level shunting. Outflows tracts: Normal great artery relationship. The right ventricular outflow tract is normal in caliber. The pulmonary valve has normal appearance and motion.There is normal flow across the pulmonary valve. There is unobstructed flowthrough the left ventricular outflow tract. The aortic valve has normal appearanceand motion. There is normal flow across the aortic valve. Great arteries: The main pulmonary artery has normal appearance. There is unobstructedflow in the main pulmonary artery. The pulmonary artery bifurcation is normal.There is unobstructed flow in both branch pulmonary arteries. The ductusarteriosus has normal appearance with normal antegrade flow. There is unobstructed antegrade flow in the ascending aorta. The aortic arch appears normal.There is unobstructed antegrade flow in the aortic arch. Effusions and extracardiac findings: No pericardial effusion. No hydrops. cardiac rhythm: heart rate is regular at 158 bpm. Doppler: There is normal flow in the ductus venosus, umbilical artery andumbilical vein. echocardiography cannot rule out small atrial or ventricularseptal defects, persistent ductus arteriosus, mild coarctation of the aorta,partial anomalous pulmonary venous return, minor anatomic valve anomalies orcoronary artery anomalies. Reading Physician: Ervin Nelson MD 01/21/2025 08:09 AM us Tricia Moreno MD CV PEDS ECHO ORDERABLES Edite d Result - Final * Pap Screen Reflex to HPV if [...] component of this testing was completed at [facility]. Stain controls for all stains resulted within this report have been reviewed and show appropriate reactivity. 02/01/2024 8:37 AM CDT SPECIALTY LABS Brushing ENDOCERVICAL STRUCTURE / Unknown 01/27/2024 1:47 PM CDT 01/27/2024 2:35 PM CDT us Santa SHARMA - ZIOLA AP Final Res ult [facility] [address] [facility] [address] Building, [address] [place] [address] * CHLAMYDIA TRACHOMATIS PCR (01/04/2014 1:00 PM CDT) Specimen Description Urine [facility] Chlamydia Trachomatis PCR Negative Negative for C. trachomatis rRNA by head chopper mediated amplification. A negative result by head chopper mediated amplification does not preclude the presence of C. trachomatis infection because results are dependent on proper and adequate collection, absence of inhibitors, and sufficient rRNA to be detected. NEG [facility] Urine specimen (specimen) 01/04/2014 1:00 PM CDT 01/04/2014 1:28 PM CDT us Emilia Carlisle MD LAB - MICRO GENERAL ORDERABLES F inal Result [facility] [address] [place], [place] [address] [address] [place] [address] from Last 3 Months or Most Recently Relevant to Health Maintenance Insurance [employer] Care Teams Senior Medical Technologist Relationship Specialty Start Date End Date Santa Wiley CNP [address] [place] [address]28 PCP - General Nurse Practitioner - Family 05/25/24 Santa Wiley CNP [address] [place] [address]95 Assigned PCP 07/23/23 Terrie Cox PA-C [address] [place] [address] 36298 Assigned Surgical Provider 08/22/24
--- OUTSIDE RECORDS SUMMARY | 2025-04-02 16:30 | XMS_ITS | Encounter Summary ---
Author Organization [place] Address [address] [place] [address]. [place] [address] Care Team Providers Care Telecommunications Manager Name Role Phone Santa Wiley CORPSMAN Primary Care Provider [phone] Aranza Gates APRN CORPSMAN Unavailable Santa Wiley CORPSMAN Unavailable [phone] Terrie Cox PA-C Unavailable [phone] Encounter Details Date Type Department Care Team (Late st Contact Info) Description 01/01/2025 [facility] Medical Advice [facility] [address] [place] [address] Santa Villar LPN Social History Tobacco Use Types Packs/Day Years [...] friends or relatives? Patient declined 01/26/2024 Attends Worship Services Not on file 01/25 Active Member of Clubs or Organizations Not on f ile 01/26/2024 Attends Club or Organization Meetings Not on louis e 01/26/2024 Marital Status Not on file 01/26/2024 PHQ-2 Answer Date Recorded PHQ-2 Score 1 07/19/2024 [facility] - Occupational Stress Questionnaire Answer Date [...] in an abandoned building, in an overnight nursing home, or couch-surfing.) Yes 01/26/2024 Are you [...] by your partner or ex-partner? No 01/27/2024 Estimated Date of Delivery Comme nts Yes [...] Description 01/31/2026 7:00 AM CDT Office Visit [address] [phone] Santa Wiley CNP [address] [place] [address] [phone] documented as of this encounter Visit Diagnoses Not on filedocumented in this encounter Additional Health Concerns Assessment Noted Time PHQ-9 Depression Total Score: 1 03/19/20 24 3:24 PM TRIAL MANAGEMENT ASSOCIATE documented as of this encounter Care Teams Telecommunications Manager Relationship Specialty Start Date End Date Santa Wiley CNP [address] [place] [address] [phone] PCP - General Nurse Practitioner - Family 05/25/24 Aranza Gates APRN CORPSMAN [address] [place] [address] [phone] Assigned Neuroscience Provider 06/24/24 02/20/25 Santa Wiley CNP [address] [place] [address] [phone] Assigned PCP 07/23/23 Terrie Cox PA-C [address] [place] [address] 306505 Assigned Surgical Provider 08/22/24 documented as of this encounter
--- OUTSIDE RECORDS SUMMARY | 2025-04-02 16:30 | XMS_ITS | Encounter Summary ---
Author Organization [place] Address [address] [place] [address]. [place] [address] Care Team Providers Care Scout Sniper Name Role Phone Clinic - [facility] Primary Care Provider Santa Wiley GLASSWARE VERIFIER Primary Care Provider [phone] Santa Whelan-C Unavailable Aranza Gates APRN GLASSWARE VERIFIER Unavailable Santa Wiley GLASSWARE VERIFIER Unavailable [phone] Aranza Gates APRN GLASSWARE VERIFIER Unavailable Terrie Cox PA-C Unavailable Reason for Visit * Reason Onset Date Comments MyChart Communication 07/29/2023 Encounter Details Date Type Department Care Team (Late st Contact Info) Description 07/29/2023 My[facility] Medical Advice [address] [place] [address] Santa Wiley, GLASSWARE VERIFIER [address] [place] [address] MyChart Communication Social History Tobacco [...] advise Thank you Radha Ordaz RN, BSN [place] Triage documented in this encounter Plan of Treatment Upcoming Encounters Date Type Department Care Team (Late st Contact Info) Description 01/31/2026 7:00 AM CDT Office Visit [address] [phone] Santa Wiley CNP [address] [place] [address] [phone] documented as of this encounter Visit Diagnoses Not on filedocumented in this encounter Additional Health Concerns Infection Onset Date Last Indicated Resolved Time Rule Out C-difficile 05/26/2024 05/28/2024 025 5:58 PM CHARGE AUDITOR Assessment Noted Time PHQ-9 Depression Total Score: 10 024 6:00 PM CDT documented as of this encounter Care Teams Scout Sniper Relationship Specialty Start Date End Date Clinic - [address] [address] PCP - General 06/16/23 05/24/24 Santa Wiley CNP [address] [place] [address] [phone] PCP - General Nurse Practitioner - Family 05/25/24 Santa Whelan PA-C [address] [place] [address] Physician Edge Gluer - Medical 06/16/23 09/17/24 Aranza Gates APRN GLASSWARE VERIFIER [address] [place] [address] Assigned Neuroscience Provider 06/24/24 02/20/25 Santa Wiley CNP [address] [place] [address] [phone] Assigned PCP 07/23/23 Aranza Gates APRN GLASSWARE VERIFIER [address] [place] [address] Assigned Neuroscience Provider 07/15/23 06/23/24 Terrie Cox PA-C [address] [place] [address] Assigned Surgical Provider 08/22/24 documented as of this encounter
--- OUTSIDE RECORDS SUMMARY | 2025-04-02 16:30 | XMS_ITS | Encounter Summary ---
Author Organization [place] Address [address] [place] [address]. [place] [address] Care Team Providers Care Electric Brain Wave Equipment Mechanic Name Role Phone Santa Whelan PA-C Primary Care Provider [phone] [facility] Primary Care Provider Santa Wiley CNP Primary Care Provider Santa Whelan-C Unavailable Santa Whelan-C Unavailable Santa Whelan PA-C Unavailable [phone] Aranza Gates APRN QUALITY INTERN Unavailable Santa Wiley QUALITY INTERN Unavailable [phone] Aranza Gates APRN QUALITY INTERN Unavailable Terrie Cox-C Unavailable [phone] Reason for Visit * Reason Comments Medication Refill ISIBLOOM 0.15-30 MG- MCG per tablet Encounter Details Date Type Department Care Team (Late st Contact Info) Description 01/12/[address] [address] Santa Whelan PA-C [address] [facility] [place] [address] Medication Refill (ISIBLOOM 0.15-30 MG-MCG per tablet) [...] Upcoming Encounters Date Type Department Care Team ([facility] Contact Info) Description 01/31/2026 7:00 AM CDT Office Visit [address] [phone] Santa Wiley[address] [address] documented as of this encounter Visit Diagnoses Diagnosis Encounter for initial prescription of contraceptive pills General counseling for prescription of oral contraceptives documented in this encounter Additional Health Concerns Infection Onset Date Last Indicated Resolved Time Rule Out C-difficile 05/26/2024 05/28/2024 025 5:58 PM EXECUTIVE WELLNESS PROGRAMS DIRECTOR Assessment Noted Time PHQ-9 Depression Total Score: 11 018 7:40 AM CDT documented as of this encounter Care Teams Electric Brain Wave Equipment Mechanic Relationship Specialty Start Date End Date Santa Whelan PA-C PCP - General Physician Public Works Supervisor - Medical 08/02/17 06/15/23 [facility] [address] [place] [address] [id number] PCP - General 06/16/23 05/24/24 Santa Wiley CNP [address] [place] [address] [phone] PCP - General Nurse Practitioner - Family 05/25/24 Santa Whelan PA-C [address] [place] [address] PCP - Assigned PCP 12/19/16 07/04/18 Santa Whelan PA-C Physician Public Works Supervisor - Medical 06/16/23 09/17/24 Santa Whelan PA-C [address] [place] [address] Assigned PCP 12/19/16 08/02/20 Aranza Gates APRN QUALITY INTERN [address] [place] [address] [place], [place] [phone] Assigned Neuroscience Provider 06/24/24 02/20/25 Santa Wiley CNP [address] [place] [address] [phone] Assigned PCP 07/23/23 Aranza Gates APRN QUALITY INTERN [address] [place] [address] Assigned Neuroscience Provider 07/15/23 06/23/24 Terrie Cox PA-C [address] [place] [address] Assigned Surgical Provider 08/22/24 documented as of this encounter
--- OUTSIDE RECORDS SUMMARY | 2025-04-02 16:30 | XMS_ITS | Encounter Summary ---
Author Organization [place] Address [address] [place] [address]. [place] [address] Care Team Providers Care Aquarist Name Role Phone Clinic - [facility] Primary Care Provider Santa Wiley [facility] Primary Care Provider Santa Whelan-C Unavailable Aranza Gates APRN STENCIL PRINTER Unavailable Santa Wiley STENCIL PRINTER Unavailable [phone] Aranza Gates APRN STENCIL PRINTER Unavailable Terrie Cox-C Unavailable Encounter Details Date Type Department Care Team (Late st Contact Info) Description 07/12/2023 [facility] Medical Advice [facility] [address] [place] [phone] Ana Hewitt RN Social History Tobacco [...] Description 01/31/2026 7:00 AM CDT Office Visit [address] [phone] Santa Wiley, LEEANNA [address] [place] [address] [phone] documented as of this encounter Visit Diagnoses Not on filedocumented in this encounter Additional Health Concerns Infection Onset Date Last Indicated Resolved Time Rule Out C-difficile 05/26/2024 05/28/2024 025 5:58 PM COUNTERSINKER Assessment Noted Time PHQ-9 Depression Total Score: 15 024 4:53 PM COUNTERSINKER documented as of this encounter Care Teams Aquarist Relationship Specialty Start Date End Date Clinic - [address] [phone] PCP - General 06/16/23 05/24/24 Santa Wiley, LEEANNA [address] [place] [address] [phone] PCP - General Nurse Practitioner - Family 05/25/24 Santa Whelan PA-C [address] [place] [address] [phone] Physician Campus Police Officer - Medical 06/16/23 09/17/24 Aranza Gates APRN STENCIL PRINTER [address] [place] [address] Assigned Neuroscience Provider 06/24/24 02/20/25 Santa Wiley, LEEANNA [address] [place] [address] [phone] Assigned PCP 07/23/23 Aranza Gates APRN CNP [address] [place] [address] [phone] Assigned Neuroscience Provider 07/15/23 06/23/24 Terrie Cox PA-C [address] [place] [address] [phone] Assigned Surgical Provider 08/22/24 documented as of this encounter
--- OUTSIDE RECORDS SUMMARY | 2025-04-02 16:30 | XMS_ITS | Encounter Summary ---
Author Organization [place] Address [address] [place] [address]. [place] [address] Care Team Providers Care Sewing Line Baler Name Role Phone Santa Wiley CNP Primary Care Provider [phone] Aranza Gates APRN INFANTRY OPERATIONS SPECIALIST Unavailable Santa Wiley INFANTRY OPERATIONS SPECIALIST Unavailable [phone] Terrie Cox PA-C Unavailable [phone] Encounter Details Date Type Department Care Team (Late st Contact Info) Description 02/01/2025 Results Follow-Up [address] [phone] Santa Wiley CNP [address] [place] [address] [phone] Subj: Message about your results Social History Tobacco Use Types Packs/Day Years Used Date Smoking Tobacco: Never Smokeless Tobacco: Never Alcohol Use Standard Drinks/Week Comments Yes 3 (1 standard drink = 0.6 oz pur e alcohol) PHQ-2 Answer Date Recorded PHQ-2 Score 1 07/19/2024 [facility] of Occupat ional Health - Occupational Stress [...] an overnight nursing home, or couch-surfing.) Yes 01/25/2025 Are you worried [...] 01/31/2026 7:00 AM CDT Office Visit [address] [phone] Santa Wiley CNP [address] [place] [address] 209802 documented as of this encounter Visit Diagnoses Not on filedocumented in this encounter Additional Health Concerns Assessment Noted Time PHQ-9 Depression Total Score: 1 03/19/20 24 3:24 PM OIL PIT ATTENDANT documented as of this encounter Care Teams Sewing Line Baler Relationship Specialty Start Date End Date Santa Wiley CNP [address] [place] [address] [phone] PCP - General Nurse Practitioner - Family 05/25/24 Aranza Gates APRN CNP [address] [place] [address] 56578 Assigned Neuroscience Provider 06/24/24 02/20/25 Santa Wiley CNP [address] [place] [address] 89776 Assigned PCP 07/23/23 Terrie Cox PA-C [address] [place] [address] Assigned Surgical Provider 08/22/24 documented as of this encounter
[2025-04-02 16:34] VITALS: BP 120/81; PULSE 113; RESP 20; TEMP 36.3; O2SAT 98; BMI 34.4
[2025-04-02 17:14] VITALS: PULSE 104; O2SAT 97
[2025-04-02 17:19] VITALS: BP 117/75; PULSE 104; PULSE 96; O2SAT 97
[2025-04-02 17:24] VITALS: PULSE 99; O2SAT 96
[2025-04-02 17:29] VITALS: PULSE 104; O2SAT 96
[2025-04-02 17:34] VITALS: BP 116/72; PULSE 111; PULSE 113; O2SAT 95
--- NOTE | 2025-04-02 18:03 | PC.OBNST ---
NST Note NST Note Start: 04/02/25 16:55 Freq: ONCE Status: Active Protocol: Document 04/02/25 18:02 [facility] (Rec: 04/02/25 18:03 ALZ [id number]) NST Note 1 Para (# of births) 0 EDC 05/14/25 Gestational Age In 34 Weeks & 0 Days Weeks & Days Patient Presented Headache,Other with Complaint(s) of Other Complaints Monitoring BPs - patient had higher BPs at home. Reactive Yes Appropriate for Yes Gestational Age TARIK Hampton RN Date 04/02/25 Reactive Yes Appropriate for Yes Gestational Age TARIK Hidalgo RNC Date 04/02/25 OB NST charge Yes Complete NST Note Yes via Write Note The provider's electronic signature indicates the NST is reactive/appropriate for gestational age. *Note to provider: If an addendum is required, open the patient's chart and click on the note under the Nurse/Allied Health tab.
== END 2025-04-02 17:55 | disposition home or self-care (01) ==
LOC: ED 17:11 → OB OUT 17:12 → OB 17:12
PROVIDERS: Visit Provider Advanced Practice Midwife
DX: O26.893 Other specified pregnancy related conditions, third trimester (principal); R51.9 Headache, unspecified; R03.0 Elevated blood-pressure reading, without diagnosis of hypertension; Z3A.34 34 weeks gestation of pregnancy
CPT/HCPCS: 59025; G0463

== ENCOUNTER 2025-04-16 16:20 | Outpatient (CLI) | payer OTHER, SELFPAY ==
[2025-04-17 14:46] LABS: Strep B DNA Probe POSITIVE (Negative)
[2025-04-17 14:54] LABS: Strep B Susceptibility Needed? No
== END 2025-04-16 16:21 | disposition home or self-care (01) ==
LOC: NFLDREF 16:20
PROVIDERS: Visit Provider Advanced Practice Midwife
DX: Z34.93 Encounter for supervision of normal pregnancy, unspecified, third trimester (principal)
CPT/HCPCS: 87081; 87653